=== PATIENT | female | born 1955 | race Caucasian/White ===

== ENCOUNTER 2021-12-20 12:24 | Emergency (ER) | payer OTHER ==
[~2021-12-20] VITALS: Ht 160 cm; Wt 93.0 kg
--- NOTE | 2021-12-20 12:37 | PHYS DOC ---
Past History Past Medical History: Anxiety, Hypertension General Adult EDM: Chief Complaint: HYPERTENSION HPI: HPI: Patient is a 66-year-old female who was sent here for evaluation of hypertension. She had a home visit from a nurse, in order to qualify for Medicare, apparently. Her blood pressure was noted to be elevated, so she was told to go to the ER. The patient has known, chronic hypertension. She was recently seen by her primary care physician, had her dose of lisinopril increased from 20 mg to 40 mg, and she also had the addition of amlodipine, which she does started taking yesterday. She had not taken her medications yet today. The patient denies chest pain, dyspnea, dizziness, headache, numbness, tingling, motor weakness, fall, syncope, abdominal pain, nausea, vomiting. She has been stressed recently secondary to multiple outside, social issues. Denies SI or HI. She has a scheduled appointment to see her PCP for follow-up on her hypertension within the month. Review of Systems: Review of Systems: Constitutional: Denies fever or chills Eyes: Denies vision loss or ocular pain. HENT: Denies nasal congestion or sore throat Respiratory: Denies cough or shortness of breath Cardiovascular: Denies chest pain or edema, denies syncope, palpitations GI: Denies abdominal pain, nausea, vomiting Musculoskeletal: Denies back pain or joint pain Integument: Denies rash Neurologic: Denies headache, focal weakness or sensory changes, denies dizziness, vertigo, fall, head injury, syncope Endocrine: Denies polyuria or polydipsia Lymphatic: Denies swollen glands Psychiatric: Anxiety Physical Exam: PE: Constitutional: Well developed, well nourished, no acute distress, non-toxic appearance. [] HENT: Normocephalic, atraumatic, bilateral external ears normal, oropharynx moist, no oral exudates, nose normal. [] Eyes: PERRL, EOMI, conjunctiva normal, no discharge. [] Neck: Normal range of motion, no tenderness, supple, no stridor. No meningismus. No JVD. Francy is midline. Cardiovascular:Heart rate regular rhythm, was 2 radial and +2 posterior tibial pulses bilaterally Lungs & Thorax: Bilateral breath sounds clear to auscultation [] Abdomen: Abdomen is soft, nondistended, nontender to palpation. Skin: Warm, dry, no erythema, no rash. [] Back: No tenderness, no CVA tenderness. [] Extremities: No tenderness, no cyanosis, no clubbing, ROM intact, no edema. No calf tenderness. Neurologic: Alert and oriented X 3, normal motor function, normal sensory function, no focal deficits noted. [] Psychologic: She is somewhat anxious, but she is cooperative and pleasant EKG: EKG: [] Radiology/Procedures: Radiology/Procedures: [] Heart Score: C/O Chest Pain: No Risk Factors: Risk Factors: DM, Current or recent (<one month) smoker, HTN, HLP, family history of CAD, obesity. Risk Scores: Score 0 - 3: 2.5% MACE over next 6 weeks - Discharge Home Score 4 - 6: 20.3% MACE over next 6 weeks - Admit for Clinical Observation Score 7 - 10: 72.7% MACE over next 6 weeks - Early Invasive Strategies Course & Med Decision Making: Course & Med Decision Making I discussed the findings, differential diagnosis and plan of care with her. She currently has a stable blood pressure, she is asymptomatic. There is no indication for further invasive exams, imaging, labs, no indication for acutely lowering her blood pressure at this time. I explained the pitfalls and dangerousness of acutely lowering someone's asymptomatic hypertension. I told to keep a log of her blood pressure at home, take it to her doctor at her next scheduled appointment within the month. She is to take her medications as scheduled. I recommend smoking cessation. She should eat a heart healthy, low- sodium diet. Return precautions are given. The patient is discharged in stable condition, verbalized understanding of instructions provided. Fadi Disclaimer: Fadi Disclaimer: This electronic medical record was generated, in whole or in part, using a voice recognition dictation system. Departure Departure: Impression: Primary Impression: Asymptomatic hypertension Additional Impression: Chronic hypertension Disposition: HOME / SELF CARE / HOMELESS Condition: STABLE Referrals: PCP,UNKNOWN (PCP) Patient Instructions: Hypertension Additional Instructions: Please continue taking your blood pressure medication as directed by your doctor. Please keep your scheduled appointment next month with your primary care doctor. You may check your blood pressure at home, do not check it more than once or twice a day. Keep a log of your blood pressure, take it with you to your next doctor's appointment. Return to the ER medially for chest pain, shortness of breath, severe headache, vomiting, fall, passing out, focal weakness, numbness or tingling or for any other concerns. I do recommend you stop smoking. GISSELLE AL DO Dec 20, 2021 12:37
[2021-12-20 12:45] VITALS: BP 165/86
== END 2021-12-20 12:52 | disposition home or self-care (01) ==
LOC: ER 12:24
DX: I10 Essential (primary) hypertension (principal); F41.9 Anxiety disorder, unspecified
CPT/HCPCS: 99281